=== PATIENT | female | born 1970 | race Caucasian/White ===

== ENCOUNTER → 2020-12-07 | Outpatient (CLI) | payer BC ==
[~2020-12-07] MED LIST: IBU800 MG PO
== END ==
LOC: KOH-I 13:50
DX: M25.551 Pain in right hip (principal); M25.552 Pain in left hip; M25.532 Pain in left wrist; M47.896 Other spondylosis, lumbar region; M51.36 Other intervertebral disc degeneration, lumbar region
CPT/HCPCS: 72100; 73110; 73522

== ENCOUNTER 2020-12-10 07:28 | Emergency (ER) | payer BC ==
[2020-12-10] MEDS ORDERED: IBU800 MG PO (10:22)
== END 2020-12-10 10:36 | disposition home or self-care (01) ==
LOC: ER1 07:28
DX: S06.9X0A Unspecified intracranial injury without loss of consciousness, initial encounter (principal); M54.2 Cervicalgia; W19.XXXA Unspecified fall, initial encounter
CPT/HCPCS: 70450; 72125; 96374; 96375; 99284; J1885; J2765; J7030

== ENCOUNTER → 2021-02-22 | Outpatient (CLI) | payer BC | LOC: KOH-I 16:15 | DX: M79.672 Pain in left foot (principal) | CPT/HCPCS: 73630 ==